=== PATIENT | female | born 2000 | race Two or more races ===

== ENCOUNTER → 2022-01-13 | Outpatient (CLI) | payer SELFPAY ==
[2016-07-13 15:39] VITALS: BP 122/82
[~2022-01-13] MED LIST: ACET-704 PO; DOCU-109 PO; FERR325T14 PO; HYDR-2678 PO; IBUP-1060 PO; OXYC1TAB15 PO; PNV1TABL25 PO
== END ==
LOC: LAB 14:43
PROVIDERS: ATTEND Obstetrics & Gynecology
DX: Z01.812 Encounter for preprocedural laboratory examination (principal); Z20.822 Contact with and (suspected) exposure to COVID-19
CPT/HCPCS: U0003

== ENCOUNTER 2022-01-16 05:44 | Inpatient (IN) | payer SELFPAY ==
[2022-01-16] VITALS (7 sets, daily range): BP systolic 93–125; BP diastolic 61–69
[~2022-01-16] VITALS: Ht 175.3 cm; Wt 110.4 kg
[~2022-01-16 05:44] MED LIST changes: -DOCU-109 PO; -OXYC1TAB15 PO
[2022-01-16 06:54] LABS: HEMATOCRIT 36.7 % (36.0-47.0); HEMOGLOBIN 12.3 g/dL (12.0-15.5); RED BLOOD COUNT 4.08 x10^6/uL (3.50-5.40); RED CELL DISTRIBUTION WIDTH 14.7 % (11.5-14.5); WHITE BLOOD COUNT 7.7 x10^3/uL (4.0-11.0)
[2022-01-16] MEDS ORDERED: CITRIC ACID/SODIUM CITRATE 30 ML SOLUTION. PO ONE (07:00)
[2022-01-16] MEDS ORDERED: OXYTOCIN 10 UNIT/ML VIAL. ONE (07:00)
[2022-01-16] MEDS ORDERED: ONDANSETRON PF 4 MG/2 ML VIAL. ONE (07:00)
[2022-01-16] MEDS ORDERED: IV RINGERS,LACTATED 1000ML 1,000 ML IV SCH ×2 (07:00→10:45)
[2022-01-16] MEDS ORDERED: ceFAZolin 2GM PREMIX 2 GM/50 ML BAG IV ONE (07:00)
[2022-01-16] MEDS ORDERED: IV NORMAL SALINE 1000ML BAG 1,000 ML IV SCH (07:00)
[2022-01-16] MEDS ORDERED: ePHEDrine PF IN SALINE 50 MG/10 ML SYRINGE. IV ONE (07:00)
[2022-01-16] MEDS ORDERED: fentaNYL PF VIAL 100 MCG/2 ML VIAL ONE (07:08)
[2022-01-16] MEDS ORDERED: MORPHINE PF 10 MG/10 ML AMPUL. ONE (07:08)
[2022-01-16] MEDS ORDERED: FAMOTIDINE 20 MG/2 ML VIAL ONE (07:57)
[2022-01-16] MEDS ORDERED: CITRIC ACID/SODIUM CITRATE 30 ML SOLUTION. ONE (07:57)
--- NOTE | 2022-01-16 07:59 | PDOC1 ---
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 The pt was interested in a BTL but her consent was signed 12/27/21. The pt is aware that the consent is not matured so will have to return PP for a BTL. The pt states that she was dx ed with HSV with the first . She has never had an outbreak. It sounds like the dx was made complete off lab findings. The pt was found to have thrombocytopenia at 36wk when she had her GTT drawn. The pt does not recall any issues with thrombocytopenia with the other pregnancies. She recalls being anemic with one of her pregnancies. PMH: HSV PSH: C/S x 2 Meds: PNV, Fe, Acyclovir All: NKDA OBHx: TC/S x 2 SH: no tob, no EtOH FH: noncontributory Medications: Meds: Current Medications Medications (Trade) Dose Ordered Sig/Mike Route PRN Reason Start Time Stop Time Status Last Admin Dose Admin Ringer's Solution 1,000 ml @ 125 mls/hr Q8H IV 01/16/22 07:00 01/16/22 06:37 Allergies: Coded Allergies: No Known Drug Allergies (Unverified , 04/06/15) Physical Exam: Vital Signs: Vital Signs Date Time Temp Pulse Resp B/P (MAP) Pulse Ox O2 Delivery O2 Flow Rate FiO2 01/16/22 06:15 98.0 100 20 125/68 (87) Room Air 98.0 PE: GENERAL: No apparent distress. Alert and oriented. HEENT: Head normocephalic, atraumatic. NECK: Supple LUNGS: Clear to auscultation. HEART: RRR, S1, S2 present, pulses intact ABDOMEN: Soft, positive bowel sounds. EXTREMITIES: No cyanosis or edema. NEUROLOGIC: Normal speech, normal tone PSYCHIATRIC: Normal affect, normal mood. SKIN: No ulceration. FHT: 150s +acels/no decels/mLTV [place]: quiet Labs: Laboratory Tests Test 01/16/22 06:30 White Blood Count 7.7 x10^3/uL (4.0-11.0) Red Blood Count 4.08 x10^6/uL (3.50-5.40) Hemoglobin 12.3 g/dL (12.0-15.5) Hematocrit 36.7 % (36.0-47.0) Mean Corpuscular Volume 90 fL (79-100) Mean Corpuscular Hemoglobin 30 pg (25-35) Mean Corpuscular Hemoglobin Concent 33 g/dL (31-37) Red Cell Distribution Width 14.7 % (11.5-14.5) H Platelet Count 75 x10^3/uL (140-400) L Laboratory Tests 01/16/22 06:30 Laboratory Tests 01/16/22 06:30 Assessment & Plan: A/P 21y @ 39.4 by L=18 1.) Prev C/S x 2 2.) Gestational thrombocytopenia Plt 75 3.) Anemia - Hgb 12.3 4.) PICA 5.) Quad screen pos - NIPT low risk 6.) DPS - consent signed 12/27/21, not matured 7.) Placenta previa - last seen as marginal in Nov, anterior 8.) HSV - on suppression 9.) TDAP given 12/27/21 10.) Flu given 12/27/21 11.) Fetus cat I FHT 12.) GBS neg CALE CAVAZOS MD Jan 16, 2022 07:59
[2022-01-16] MEDS ORDERED: PHENYLEPHRINE 10 MG/ML VIAL. ONE (08:26)
[2022-01-16] MEDS ORDERED: 0.9 % SODIUM CHLORIDE 20 ML VIAL. IJ ONE (08:29)
[2022-01-16] MEDS ORDERED: 0.9 % SODIUM CHLORIDE 10 ML DISP.SYRIN. IV PRN (10:00)
[2022-01-16] MEDS ORDERED: diphenhydrAMINE ORAL ELIXIR 12.5 MG/5 ML ML PO PRN (10:00)
[2022-01-16] MEDS ORDERED: TDaP (BOOSTRIX) per PROTOCOL. MC PRN (10:00)
[2022-01-16] MEDS ORDERED: MMR per PROTOCOL. MC PRN (10:00)
[2022-01-16] MEDS ORDERED: BENZOCAINE 20% TOPICAL AEROSOL SPRAY 57GM CAN. TP PRN (10:00)
[2022-01-16] MEDS ORDERED: ACETAMINOPHEN 325 MG TABLET. PO PRN (10:00)
[2022-01-16] MEDS ORDERED: OXYTOCIN 30 UNIT/500 ML PREMIX 500 ML IV PRN (10:00)
[2022-01-16] MEDS ORDERED: oxyCODONE/APAP 5/325 1 TAB TABLET PO PRN (10:00)
--- NOTE | 2022-01-16 10:06 | PDOC4 ---
OPERATIVE NOTE: PreOpDx: 1.) IUP @ 39.4 by L=18, 2.) Prev C/S x 2, 3.) Gestational thrombocytopenia, 4.) Anemia, 5.) Quad screen pos - NIPT low risk, 6.) DPS - consent signed 12/27/21, not matured, 7.) Placenta previa resolved, anterior, 8.) HSV - on suppression, 9.) GBS neg PostOp Dx: same Procedure: RLTCS Surgeon: Reuben Cavazos Anesthesia: Spinal EBL: 800 cc Fluids 3000 cc UOP: 300 cc Complications: None Findings: viable male delivered at 0854. Wt 3650 g. APGARS 7/8. Nml tubes and ovaries Path: Cord blood and cord ABG CALE CAVAZOS MD Jan 16, 2022 10:06
--- NOTE | 2022-01-16 10:32 | OP ---
DATE OF SURGERY: 01/16/2022 PREOPERATIVE DIAGNOSES: 1. Intrauterine at 39 weeks and 4 days by LMP equal to an 18-week ultrasound. 2. Previous section x 2. 3. Gestational thrombocytopenia. 4. Anemia. 5. Quad screen that was positive, but NIPT that was found to be low risk. 6. Desires permanent sterilization, but consent signed on 12/27, so not matured. 7. History of placenta previa, resolved with an anterior placenta. 8. History of serum positive HSV, on suppression. 9. GBS negative. POSTOPERATIVE DIAGNOSES: 1. Intrauterine at 39 weeks and 4 days by LMP equal to an 18-week ultrasound. 2. Previous section x 2. 3. Gestational thrombocytopenia. 4. Anemia. 5. Quad screen that was positive, but NIPT that was found to be low risk. 6. Desires permanent sterilization, but consent signed on 12/27, so not matured. 7. History of placenta previa, resolved with an anterior placenta. 8. History of serum positive HSV, on suppression. 9. GBS negative. PROCEDURE: Repeat low transverse . SURGEON: Steven Beatty MD ANESTHESIA: Spinal. ESTIMATED BLOOD LOSS: 800 mL. FLUIDS: 3000 mL. URINE OUTPUT: 300 mL. COMPLICATIONS: None. FINDINGS: Viable female infant delivered at 0854, weighing 3650 grams with Apgars of 7 and 8. Normal maternal tubes and ovaries noted. PATHOLOGY: Cord blood and cord ABG. DESCRIPTION OF PROCEDURE: The patient was taken to the operating room where spinal anesthesia was placed without difficulty. The patient was prepped and draped in normal sterile fashion. Her previous Pfannenstiel skin incision was used. This incision was used to cut down to her fascia. The fascia was then nicked in the midline. The fascial incision was then extended laterally with Grant scissors. Superior aspect of the fascial incision was then grasped with 2 Chaparrita clamps, elevated and the underlying rectus muscle was dissected off with the scalpel. Attention was then turned to the inferior aspect of the fascial incision, which was grabbed with a Chaparrita clamp, elevated and the underlying rectus muscle was dissected off with Grant scissors. The midline of the rectus muscle was identified and to allow for the peritoneum to be grasped with 2 hemostats. The peritoneum was then tented up and entered sharply with Metzenbaum scissors. At that point, a digital examination of the peritoneal opening revealed no adhesions. The peritoneal incision was then extended superiorly and inferiorly with good visualization of the bladder with traction and countertraction. At that point, the Tree ring was then placed in the abdomen to better visualize the lower uterine segment. A bladder flap was then created with Metzenbaum scissors. The lower uterine segment was then incised in transverse fashion with a scalpel. The hysterotomy was extended with traction and countertraction. At that point, the placenta was exiting the hysterotomy. I reached inferiorly to the placenta to grasp the head, the head was not well engaged. The head was then eventually brought to the hysterotomy. With fundal pressure, it could not be delivered immediately. A vacuum was placed on the head and traction was placed with fundal pressure applied by the camp assistant and the head was delivered. The rest of was delivered atraumatically. The nose and mouth were bulb suctioned. The cord was double clamped and cut and the infant was handed over to waiting deputy manager. Placenta was then removed manually and cleared of all clots and debris. Uterine incision was repaired with #1 chromic in a running locked fashion. A second layer of the same suture was used to imbricate. Good hemostasis was noted. At that point, the gutters were copiously irrigated and cleared of all clots and debris. The peritoneum was reapproximated with 2-0 Vicryl in a running fashion. The muscle was reapproximated with 2-0 Vicryl in a running fashion. The fascia was then closed with 0 Vicryl in a running fashion, subcutaneous space was closed with 3 interrupted 2-0 Vicryls. The skin was then closed with 3-0 Monocryl in a subcuticular manner. Sponges, laps and needles were correct x 3. Two grams of Ancef were given prior to the procedure. The patient was taken to recovery room in stable condition. BRIANA DR: Ramila TID: [id number] AMYD
[2022-01-16] MEDS ORDERED: PROCHLORPERAZINE 10 MG/2 ML VIAL. IVP PRN (10:45)
[2022-01-16] MEDS ORDERED: HYDROmorphone 2 MG/ML INJ. IVP PRN (10:45)
[2022-01-16] MEDS ORDERED: fentaNYL PF VIAL 100 MCG/2 ML VIAL IVP PRN ×2 (10:45)
[2022-01-16] MEDS ORDERED: MORPHINE SULFATE 2 MG/ML INJ. IVP PRN (10:45)
[2022-01-16] MEDS: KETOROLAC 30 MG/ML VIAL. IVP PRN ×2 (12:03→18:15)
[2022-01-16] MEDS: FERROUS SULFATE 325 MG TABLET. PO SCH (17:00)
[2022-01-17] MEDS: KETOROLAC 30 MG/ML VIAL. IVP PRN ×2 (02:17→08:25)
[2022-01-17 03:06] VITALS: BP 121/76
[2022-01-17 05:45] VITALS: BP 97/66
[2022-01-17 07:05] LABS: HEMATOCRIT 30.3 % (36.0-47.0); HEMOGLOBIN 9.9 g/dL (12.0-15.5); RED BLOOD COUNT 3.3 x10^6/uL (3.50-5.40); RED CELL DISTRIBUTION WIDTH 14.5 % (11.5-14.5); WHITE BLOOD COUNT 6.8 x10^3/uL (4.0-11.0)
[2022-01-17] MEDS: FERROUS SULFATE 325 MG TABLET. PO SCH ×2 (08:25→17:19)
[2022-01-17] MEDS: DOCUSATE SODIUM 100 MG CAPSULE. PO PRN ×2 (08:25→17:19)
[2022-01-17] MEDS ORDERED: PRENATAL MULTIVITAMIN TABLET. PO SCH (09:00)
[2022-01-17] MEDS ORDERED: MULTIVITAMIN with MINERAL TABLET. PO SCH (09:00)
[2022-01-17 10:00] VITALS: BP 111/65
--- NOTE | 2022-01-17 10:10 | PDOC ---
BATH SOLUTION MAKER PROGRESS NOTE Date of Service: DATE: 01/17/22 TIME: 10:09 Subjective: Pt with good pain control. Charly PO. Voiding. Minimal lochia. Discussed thrombocytopenia with the pt. Objective: Vital Signs: Vital Signs Date Time Temp Pulse Resp B/P (MAP) Pulse Ox O2 Delivery O2 Flow Rate FiO2 01/16/22 12:45 98.6 70 20 114/68 (83) 96 98.6 01/16/22 23:05 Room Air Vital Signs Date Time Temp Pulse Resp B/P (MAP) Pulse Ox O2 Delivery O2 Flow Rate FiO2 01/17/22 05:45 98.4 84 18 97/66 (76) 95 Room Air 98.4 Labs: Laboratory Tests Test 01/17/22 06:20 White Blood Count 6.8 x10^3/uL (4.0-11.0) Red Blood Count 3.30 x10^6/uL (3.50-5.40) L Hemoglobin 9.9 g/dL (12.0-15.5) L Hematocrit 30.3 % (36.0-47.0) L Mean Corpuscular Volume 92 fL (79-100) Mean Corpuscular Hemoglobin 30 pg (25-35) Mean Corpuscular Hemoglobin Concent 33 g/dL (31-37) Red Cell Distribution Width 14.5 % (11.5-14.5) Platelet Count 61 x10^3/uL (140-400) L Laboratory Tests 01/17/22 06:20 Laboratory Tests 01/17/22 06:20 Physical Exam: GENERAL: No apparent distress. Alert and oriented. HEENT: Head normocephalic, atraumatic. NECK: Supple LUNGS: Clear to auscultation. HEART: RRR, S1, S2 present, pulses intact ABDOMEN: Soft, positive bowel sounds. EXTREMITIES: No cyanosis or edema. NEUROLOGIC: Normal speech, normal tone PSYCHIATRIC: Normal affect, normal mood. SKIN: No ulceration. FFNT below umb No C/C/E Inc: dressing dry Assessment & Plan: A/P 21y POD #1 s/p RLTCS 1.) PO doing well 2.) Gestational thrombocytopenia Plt 75 -> 61, no signs of active bleeding, will repeat CBC tomorrow 3.) Anemia - Hgb 12.3 -> 9.9 4.) DPS - consent signed 12/27/21, not matured 5.) TDAP given 12/27/21 6.) Flu given 12/27/21 7.) Cont PO care CALE CAVAZOS MD Jan 17, 2022 10:10
[2022-01-17] MEDS: oxyCODONE/APAP 5/325 1 TAB TABLET PO PRN ×2 (15:17→19:54)
[2022-01-17 17:30] VITALS: BP 106/69
[2022-01-17] MEDS: IBUPROFEN 400 MG TABLET. PO PRN (19:54)
[2022-01-17 22:30] VITALS: BP 111/76
[2022-01-18 05:18] VITALS: BP 114/72
[2022-01-18] MEDS: IBUPROFEN 400 MG TABLET. PO PRN (05:18)
[2022-01-18] MEDS: oxyCODONE/APAP 5/325 1 TAB TABLET PO PRN (05:18)
[2022-01-18 06:10] LABS: BASO % 0 % (0-3); EOS # 0.2 x10^3/uL (0.0-0.7); EOS % 3 % (0-3); HEMATOCRIT 30.2 % (36.0-47.0); HEMOGLOBIN 9.9 g/dL (12.0-15.5); LYMPH # 1.6 x10^3/uL (1.0-4.8); LYMPH % 21 % (24-48); MEAN CORPUSCULAR HEMOGLOBIN 30 pg (25-35); MEAN CORPUSCULAR HGB CONC 33 g/dL (31-37); MEAN CORPUSCULAR VOLUME 92 fL (79-100); MONO # 0.5 x10^3/uL (0.0-1.1); MONO % 7 % (0-9); NEUT # 5.3 x10^3/uL (1.8-7.7); NEUT % 70 % (31-73); PLATELET COUNT 76 x10^3/uL (140-400); RED BLOOD COUNT 3.28 x10^6/uL (3.50-5.40); RED CELL DISTRIBUTION WIDTH 15.1 % (11.5-14.5); WHITE BLOOD COUNT 7.6 x10^3/uL (4.0-11.0)
[2022-01-18 08:00] VITALS: BP 115/76
[2022-01-18] MEDS: DOCUSATE SODIUM 100 MG CAPSULE. PO PRN (09:10)
[2022-01-18] MEDS: FERROUS SULFATE 325 MG TABLET. PO SCH (09:11)
--- NOTE | 2022-01-18 10:49 | PDOC ---
PRIVATE MORTGAGE BANKER SAFE PROGRESS NOTE Date of Service: DATE: 01/18/22 TIME: 10:45 Subjective: Pt with good pain control. Charly PO. Voiding. Minimal lochia. Objective: Vital Signs: Vital Signs Date Time Temp Pulse Resp B/P (MAP) Pulse Ox O2 Delivery O2 Flow Rate FiO2 01/17/22 10:00 98.2 18 111/65 (80) 98.2 01/17/22 17:30 90 01/17/22 20:25 97 Room Air Vital Signs Date Time Temp Pulse Resp B/P (MAP) Pulse Ox O2 Delivery O2 Flow Rate FiO2 01/18/22 08:00 97.6 82 20 115/76 (89) 96 Room Air 97.6 Labs: Laboratory Tests Test 01/18/22 05:40 White Blood Count 7.6 x10^3/uL (4.0-11.0) Red Blood Count 3.28 x10^6/uL (3.50-5.40) L Hemoglobin 9.9 g/dL (12.0-15.5) L Hematocrit 30.2 % (36.0-47.0) L Mean Corpuscular Volume 92 fL (79-100) Mean Corpuscular Hemoglobin 30 pg (25-35) Mean Corpuscular Hemoglobin Concent 33 g/dL (31-37) Red Cell Distribution Width 15.1 % (11.5-14.5) H Platelet Count 76 x10^3/uL (140-400) L Neutrophils (%) (Auto) 70 % (31-73) Lymphocytes (%) (Auto) 21 % (24-48) L Monocytes (%) (Auto) 7 % (0-9) Eosinophils (%) (Auto) 3 % (0-3) Basophils (%) (Auto) 0 % (0-3) Neutrophils # (Auto) 5.3 x10^3/uL (1.8-7.7) Lymphocytes # (Auto) 1.6 x10^3/uL (1.0-4.8) Monocytes # (Auto) 0.5 x10^3/uL (0.0-1.1) Eosinophils # (Auto) 0.2 x10^3/uL (0.0-0.7) Basophils # (Auto) 0.0 x10^3/uL (0.0-0.2) Laboratory Tests 01/18/22 05:40 Laboratory Tests 01/18/22 05:40 Physical Exam: GENERAL: No apparent distress. Alert and oriented. HEENT: Head normocephalic, atraumatic. NECK: Supple LUNGS: Clear to auscultation. HEART: RRR, S1, S2 present, pulses intact ABDOMEN: Soft, positive bowel sounds. EXTREMITIES: No cyanosis or edema. NEUROLOGIC: Normal speech, normal tone PSYCHIATRIC: Normal affect, normal mood. SKIN: No ulceration. FFNT below umb No C/C/E Inc: C/D/I Assessment & Plan: A/P 21y POD #2 s/p RLTCS 1.) PO doing well 2.) Gestational thrombocytopenia Plt 75 -> 61 -> 76, no signs of active bleeding 3.) Anemia - Hgb 12.3 -> 9.9 -> 9.9 4.) DPS - consent signed 12/27/21, not matured 5.) TDAP given 12/27/21 6.) Flu given 12/27/21 7.) D/c home CALE CAVAZOS MD Jan 18, 2022 10:49
[2022-01-18] MEDS ORDERED: IBUP-1060 PO (11:02)
[2022-01-18] MEDS ORDERED: FERR325T14 PO (11:02)
[2022-01-18] MEDS ORDERED: DOCU-109 PO (11:02)
[2022-01-18] MEDS ORDERED: OXYC1TAB15 PO ×2 (11:02→11:04)
[2022-01-18 14:00] VITALS: BP 119/85
--- NOTE | 2022-01-18 14:59 | DS ---
DATE OF DISCHARGE: 01/18/2022 ADMISSION DIAGNOSES: 1. Intrauterine at 39 weeks and 4 days by LMP equal to an 18-week ultrasound. 2. Previous section x 2. 3. Gestational thrombocytopenia. 4. Anemia. 5. Pica. 6. Quad screen positive with a low risk NIPT. 7. Desires permanent sterilization with a consent signed on 12/27/2021, which made it not matured. 8. History of placenta previa anterior on most recent ultrasound. 9. History of seropositive HSV. 10. Status post Tdap. 11. Status post flu vaccine. 12. GBS negative. DISCHARGE DIAGNOSES: 1. Intrauterine at 39 weeks and 4 days by LMP equal to an 18-week ultrasound. 2. Previous section x 2. 3. Gestational thrombocytopenia. 4. Anemia. 5. Pica. 6. Quad screen positive with a low risk NIPT. 7. Desires permanent sterilization with a consent signed on 12/27/2021, which made it not matured. 8. History of placenta previa anterior on most recent ultrasound. 9. History of seropositive HSV. 10. Status post Tdap. 11. Status post flu vaccine. 12. GBS negative. PROCEDURE: Repeat low transverse . BRIEF HOSPITAL COURSE: The patient is a 21-year-old 3, para 2-0-0-2, who presented to Labor and Delivery at 39 weeks and 4 days by LMP equal to an 18-week ultrasound for scheduled . The patient was interested in a tubal ligation, but was unable to sign a consent until 12/27. The patient was aware that the consent would not be matured by the time of this . Also, of note, the patient was diagnosed with HSV during her . She has never had an outbreak and sounds like the diagnosis was completely made based on lab findings and also on her 36 weeks labs that were drawn, the patient was found to have thrombocytopenia. Recent count on those labs returned at 93. When the patient presented to Labor and Delivery, her initial platelet count was found to be 75. The patient underwent a repeat without complications. See delivery note for full detail. On postoperative day #1, her CBC was repeated and it had shown that her platelets were down to 61, which was expected after the first day. The patient had no signs or symptoms of active bleeding. Her hemoglobin went from 12.3-9.9 and then on postop day #2, her platelet count had risen to 76 with her hemoglobin remaining stable at 9.9. The patient was meeting all discharge criteria and desired discharge home. The patient was subsequently discharged. DISCHARGE INSTRUCTIONS: The patient was told not to lift anything greater than 20 pounds, have pelvic rest for 6 weeks, not to drive on narcotics. CALL IF: The patient was to call if she had fevers, chills, nausea, vomiting, abdominal pain or any additional questions or concerns. FOLLOWUP APPOINTMENT: The patient was to follow up on 01/26/2022 at 2:20 p.m. for an incision check. DISCHARGE MEDICATIONS: The patient was given a prescription for Percocet 5, 15 pills; Motrin 800 mg, 30 pills; Colace 100 mg, 30 pills and ferrous sulfate 325 mg, [address]: Ramila TID: [id number]
--- NOTE | 2022-01-18 17:27 | NUR ---
1400 d/c instructions given with spouse. Patient voiced understanding. questions answered. 1445 D/c patient amb to private vehicle accompanied by RN and family.
== END 2022-01-18 14:45 | disposition home or self-care (01) | DRG 787 ==
LOC: 3 SO LND 05:44
PROVIDERS: ADMIT Obstetrics & Gynecology; ATTEND Obstetrics & Gynecology
PROC: 10D00Z1 Extraction of Products of Conception, Low, Open Approach (ICD-10-PCS; principal; 2022-01-16)
DX: O34.211 Maternal care for low transverse scar from previous cesarean delivery (principal); O99.12 Other diseases of the blood and blood-forming organs and certain disorders involving the immune mechanism complicating childbirth; O44.03 Complete placenta previa NOS or without hemorrhage, third trimester; O99.02 Anemia complicating childbirth; D69.59 Other secondary thrombocytopenia; D64.9 Anemia, unspecified; Z37.0 Single live birth; Z3A.39 39 weeks gestation of pregnancy
CPT/HCPCS: 36415; 85025; 85027; 86592; 86850; 86900; 86901; C1755; G0378; J0690; J1885; J2274; J2370; J2405; J2590; J3010; J3490; J7120